=== PATIENT | female | born 1960 ===

== ENCOUNTER 2025-02-07 12:04 | Inpatient (IN) | payer OTHER ==
[~2025-02-07] VITALS: Ht 61 cm; Wt 78.0 kg
[2025-02-07] MEDS ORDERED: PROPRANOLOL HCL60 MG PO (12:31)
[2025-02-07] MEDS ORDERED: NEURONTIN300 MG (12:31)
[2025-02-07] MEDS ORDERED: ZESTRIL20 MG PO (12:31)
[2025-02-07] MEDS ORDERED: NEURONTIN300 MG PO (12:32)
[2025-02-21] MEDS ORDERED: CEFTRIAXONE SODIUM 2,000 MG VIAL ONE (05:59)
[2025-02-21] MEDS ORDERED: METRONIDAZOLE/SODIUM CHLORIDE 500 MG/100 ML PIGGYBACK IV ONE ×2 (06:00→07:45)
[2025-02-21] MEDS ORDERED: LIDOCAINE HCL 1%/EPINEPHRINE 20ML VIAL IJ ONE ×2 (06:53→07:45)
[2025-02-21] MEDS ORDERED: BUPIVACAINE HCL/Mpf 0.5% 10ML VIAL ONE (06:53)
[2025-02-21] MEDS ORDERED: BUPIVACAINE HCL 30 ML VIAL IJ ONE (07:45)
[2025-02-21] MEDS ORDERED: CEFTRIAXONE SODIUM 2,000 MG VIAL IV ONE (07:45)
[2025-02-21] MEDS ORDERED: SUGAMMADEX SODIUM 200 MG/2 ML VIAL IV ONE ×2 (08:13→08:30)
[2025-02-21] MEDS ORDERED: LACTULOSE 20 G/30 ML BLIST.PACK PO SCH (09:00)
[2025-02-21] MEDS ORDERED: LACTOBACILLUS ACIDOPHILUS 1 CAP CAP PO SCH (09:00)
[2025-02-21] MEDS ORDERED: MORPHINE SULFATE 4 MG/ML CARTRIDGE IV PRN (09:00)
[2025-02-21] MEDS ORDERED: SIMETHICONE 125 MG CAPSULE PO SCH (09:00)
[2025-02-21] MEDS ORDERED: FAMOTIDINE/PF 20 MG/2 ML VIAL IV PUSH SCH (09:00)
[2025-02-21] MEDS ORDERED: METOCLOPRAMIDE HCL 5 MG/ML VIAL IV SCH (09:00)
[2025-02-21] MEDS ORDERED: OxyCODONE HCL 5 MG TABLET (ROXICODONE) PO PRN (09:00)
[2025-02-21] MEDS ORDERED: RINGERS SOLUTION,LACTATED 1,000 ML IV SCH (09:00)
[2025-02-21] MEDS ORDERED: ONDANSETRON HCL 2 MG/ML VIAL IV PRN (09:00)
[2025-02-21] MEDS ORDERED: HYOSCYAMINE SULFATE 0.125 MG TAB.SUBL SL SCH (09:00)
[2025-02-21] MEDS ORDERED: GABAPENTIN 300 MG CAPSULE PO SCH (09:00)
[2025-02-21] MEDS ORDERED: METOCLOPRAMIDE HCL 5 MG/ML VIAL ONE ×2 (10:14→17:00)
[2025-02-21] MEDS ORDERED: FAMOTIDINE/PF 20 MG/2 ML VIAL ONE (10:14)
[2025-02-21] MEDS ORDERED: MORPHINE SULFATE 4 MG/ML VIAL IV ONE ×2 (10:25→10:55)
[2025-02-21] MEDS ORDERED: ENALAPRILAT DIHYDRATE 1.25 MG/ML VIAL IV PRN (11:30)
[2025-02-21] MEDS ORDERED: ACETAMINOPHEN 500 MG GEL..CAP PO SCH (14:00)
[2025-02-21 15:37] LABS: HEMATOCRIT 39.2 % (36.0-45.00); HEMOGLOBIN 13.2 g/dL (12.0-15.00); MEAN CELL VOLUME 87.3 fL (80.00-100.00); MEAN CORPUSCULAR HEMOGLOBIN 29.5 pg (27.00-32.0); MEAN CORPUSCULAR HGB CONC 33.8 g/dl (32.0-36.0); PLATELET COUNT 227 K/uL (150-450); RED BLOOD COUNT 4.48 M/uL (4.00-6.00); RED CELL DISTRIBUTION WIDTH 13.8 % (11.5-14.5)
[2025-02-21] MEDS ORDERED: CELECOXIB 200 MG CAPSULE PO SCH (17:00)
[2025-02-21] MEDS ORDERED: POLYETHYLENE GLYCOL 3350 17 GM BLIST.PACK PO SCH (17:00)
[2025-02-21] MEDS ORDERED: CELECOXIB 200 MG CAPSULE PO ONE (17:01)
[2025-02-21] MEDS ORDERED: SIMETHICONE 125 MG CAPSULE PO ONE (17:01)
[2025-02-21] MEDS ORDERED: HYOSCYAMINE SULFATE 0.125 MG TAB.SUBL ONE (17:01)
[2025-02-21] MEDS ORDERED: GABAPENTIN 300 MG CAPSULE PO ONE (17:01)
[2025-02-21 17:48] VITALS: BP 109/69; O2SAT 96
[2025-02-21] MEDS ORDERED: PROPRANOLOL HCL 60 MG TABLET PO SCH (21:00)
[2025-02-22 01:06] VITALS: BP 92/55; O2SAT 98
[2025-02-22 07:34] LABS: HEMATOCRIT 37.6 % (36.0-45.00); HEMOGLOBIN 12.9 g/dL (12.0-15.00); MEAN CELL VOLUME 88.2 fL (80.00-100.00); MEAN CORPUSCULAR HEMOGLOBIN 30.4 pg (27.00-32.0); MEAN CORPUSCULAR HGB CONC 34.4 g/dl (32.0-36.0); PLATELET COUNT 206 K/uL (150-450); RED BLOOD COUNT 4.26 M/uL (4.00-6.00); RED CELL DISTRIBUTION WIDTH 13.9 % (11.5-14.5)
[2025-02-22 08:07] LABS: CALCIUM 8.6 mg/dL (8.5-10.1); CREATININE SERUM 0.82 mg/dL (0.55-1.02); GFR 70.18; MAGNESIUM 1.6 mg/dL (1.8-2.4); PHOSPHOROUS 3.6 mg/dL (2.5-4.9); POTASSIUM 4.17 mEq/L (3.5-5.1)
[2025-02-22 08:52] VITALS: BP 106/63; O2SAT 98
[2025-02-22] MEDS ORDERED: LISINOPRIL 20 MG TABLET PO SCH (09:00)
[2025-02-22] MEDS ORDERED: MAGNESIUM SULFATE IN WATER 50 ML IV NR (09:15)
[2025-02-22 16:26] VITALS: BP 103/67; O2SAT 99
[2025-02-22] MEDS ORDERED: ENOXAPARIN SODIUM 40 MG/0.4 ML SYRINGE SUBCUTANEO SCH (17:00)
[2025-02-23] VITALS: BP 92/58; O2SAT 95
[2025-02-23 07:06] LABS: HEMATOCRIT 35.1 % (36.0-45.00); HEMOGLOBIN 12.1 g/dL (12.0-15.00); MEAN CELL VOLUME 88.3 fL (80.00-100.00); MEAN CORPUSCULAR HEMOGLOBIN 30.4 pg (27.00-32.0); MEAN CORPUSCULAR HGB CONC 34.4 g/dl (32.0-36.0); PLATELET COUNT 202 K/uL (150-450); RED BLOOD COUNT 3.97 M/uL (4.00-6.00); RED CELL DISTRIBUTION WIDTH 14.1 % (11.5-14.5)
[2025-02-23 07:36] LABS: CALCIUM 8.4 mg/dL (8.5-10.1); CREATININE SERUM 0.76 mg/dL (0.55-1.02); GFR 76.62; MAGNESIUM 2.3 mg/dL (1.8-2.4); PHOSPHOROUS 2.9 mg/dL (2.5-4.9); POTASSIUM 4.14 mEq/L (3.5-5.1)
[2025-02-23 08:00] VITALS: BP 120/75; O2SAT 100
[2025-02-23] MEDS ORDERED: ENOXAPARIN SODIUM 40 MG/0.4 ML SYRINGE SUBCUTANEO SCH (09:00)
[2025-02-23 16:53] VITALS: BP 111/71; O2SAT 96
[2025-02-23] MEDS ORDERED: PROPRANOLOL HCL 20 MG TABLET PO SCH (21:00)
[2025-02-23] MEDS ORDERED: FAMOtidine 20 MG TABLET PO SCH (21:00)
== END 2025-02-23 20:54 | disposition home or self-care (01) | DRG 330 ==
LOC: SURH 02-20 12:03 → O/R 02-21 05:10 → SURH 02-21 15:17
PROVIDERS: Internal Medicine Geriatric Medicine; ADMIT Colon & Rectal Surgery; ATTEND Colon & Rectal Surgery
PROC: 0DBP4ZZ Excision of Rectum, Percutaneous Endoscopic Approach (ICD-10-PCS; 2025-02-21)
PROC: 8E0W4CZ Robotic Assisted Procedure of Trunk Region, Percutaneous Endoscopic Approach (ICD-10-PCS; 2025-02-21)
PROC: 0DTN4ZZ Resection of Sigmoid Colon, Percutaneous Endoscopic Approach (ICD-10-PCS; principal; 2025-02-21 07:00)
DX: K57.32 Diverticulitis of large intestine without perforation or abscess without bleeding (principal); K92.1 Melena
CPT/HCPCS: 44207; 44213; S2900